=== PATIENT | female | born 2000 | race Caucasian/White ===

== ENCOUNTER 2020-09-13 10:27 | Outpatient (CLI) | payer BC ==
--- NOTE | 2020-09-13 11:09 | ULT ---
ULTRASOUND ABDOMEN: HISTORY: Abdominal pain FINDINGS: The liver, spleen, gallbladder, pancreas, kidneys and visualized portions of the aorta and IVC appear normal. The common duct measures 2mm in diameter. No free fluid is seen. IMPRESSION: Normal exam.
== END 2020-09-13 10:28 | disposition home or self-care (01) ==
LOC: BICULT 10:27
PROVIDERS: ATTEND Internal Medicine Gastroenterology
DX: R10.9 Unspecified abdominal pain (principal); K21.9 Gastro-esophageal reflux disease without esophagitis; R14.2 Eructation; R63.4 Abnormal weight loss
CPT/HCPCS: 93975